=== PATIENT | male | born 1990 | race Caucasian/White ===

== ENCOUNTER 2016-09-04 03:58 | Emergency (ER) | payer OTHER ==
[~2016-09-04] VITALS: Ht 185.4 cm; Wt 95.5 kg
[2016-09-04 04:01] VITALS: BP 136/66; PULSE 84; RESP 22; O2SAT 98
--- NOTE | 2016-09-04 04:23 | ED.REPORT ---
HPI-Extremity Problem Lower Date of Service Sep 04, 2016 ED Provider: Juan Bennett MD A 26 year old male presents to the ED complaining of intermittent right knee pain that began yesterday. He states that his knee is "locked" at 5 degrees and is painful with ROM. Patient was reportedly sleeping when his symptoms began. He has been unable to sleep because of the pain. Patient reportedly injured the knee in 2009 and believes that the injury never fully healed. He has been unable to flex or extend the knee due to pain. Patient took 2 ibuprofen prior to arrival with no relief. Nursing Notes Stated Complaint: RT KNEE PAIN Chief Complaint: Extremity Trauma Nursing Notes Reviewed: Yes Allergies: Coded Allergies: No Known Allergies (Unverified , 09/04/16) General Time Seen by MD: 04:15 Chief Complaint Knee injury right Hx Obtained From: Patient Arrived By: Walk-in Onset Occurred: Yesterday Symptom Duration: Since onset Caused by: Accidental Location: : Knee right Quality: Painful Severity: Current: Moderate Severity: Maximum: Moderate Pertinent Negative: Pt denies other symptoms Exacerbated by: Extension, Flexion Recent Healthcare: No recent doctor visit, No recent hospitalization Past Medical History Past Medical History Previous Knee Injury (2009) Past Surgical History None reported. Smoking History Unknown if Ever Smoker Social History Other Social History: Good social support, Local resident Ambulatory Status Independent Review of Systems Musculoskeletal: Reports: Joint pain (right knee pain), Denies: Extremity swelling, Joint swelling Complete sys rev & neg: except as marked. Physical Exam Initial Vital Signs Vital Signs (First) Date Time Temp Pulse Resp B/P Pulse Ox O2 Delivery O2 Flow Rate FiO2 09/04/16 04:01 36.0 84 22 136/66 98 Room Air Initial VS: Reviewed Head / Eyes: Atraumatic, Normocephalic, PERRL Neck: Supple, Non-tender, Full range of motion Upper Extremities: Vascular intact, Neuro intact, No swelling, No tenderness Skin: Warm, Dry, No cyanosis Neurologic: Alert, Oriented, Nonfocal Psychiatric: Mood/affect normal, Behavior normal, Normal thought content Lower Extremity / Pelvis / MS: Atraumatic, Neurologic intact, Vascular intact Lower Ext Brief Normals: Knee L exam normal Right Knee: Positive: ROM painful (Pt is only comfortable at 5 degrees), Negative: Joint effusion present, Pre-patellar effusion, Tenderness present... Ankle / Foot: Atraumatic, Inspection NL, Neurologic intact, Vascular intact General/Constitutional: Awake, Alert, No acute distress Respiratory / Chest: Atraumatic, Breath sounds NL, Breath sounds = bilat, No respiratory distress Cardiovascular: Heart rate NL, Regular rhythm, Heart sounds NL Interpretation & Diagnostics X-Ray Interpretation Xray Interpretation: IMPRESSION: Negative for fracture X-Ray Ordered: Knee right Interpretation / Wet Read by: Wet read ED physician Procedures Splint Application - Fx Mgt Splint Application- Fx Mgt: Knee Immobilizer placed Time: 07:16 Procedure Performed by: ED physician, Nurse Post-Procedure / Complications: Cap refill normal, Post splint vascular nl, Post splint neuro nl, Condition improved, Tolerated procedure well, Patient stable Splint Post-Application Eval Extremity Condition: Cap refill < 2 sec, Distal sensation intact, Distal motor Intact, No compartment syndrome Re-Eval/Medical Decision Med Decision/Clinical Course 26-year-old male with a history of knee injury presents with knee pain and stiffness. His knee is currently locked at about 5-10 of flexion and very uncomfortable to move out of that range. There is no effusion. I am unable to manipulate the leg to do adequate need testing. Presentation is consistent with the meniscus injury. He was placed in a knee immobilizer and given a Vicodin prepack for pain. He will follow up with Dr. Dumont. Re-Evaluation/Progress : Time of Eval: 07:12 Patient Status: Condition improved Re-Evaluation/Progress Note: KNee immobilizer placed. Pain is still present. Patient is informed of his X-ray results. All of the patient's questions are addressed. He understands and agrees with the intended treatment plan. Counseled Regarding: Diagnosis, Need for follow-up, When/why to return to ED Discharge & Departure Impression: Primary Impression: Acute internal derangement of right knee Disposition: Home Discharge Condition All VS Reviewed: Yes Condition: Improved Patient Instructions: Crutch Instructions (ED), Knee Immobilizer (ED) Additional Instructions: There likely is a meniscus tear that is preventing the knee from functioning properly. Wear the knee immobilizer and use the crutches. acetaminophen and/ or ibuprofen as needed for discomfort. Hydrocodone/acetaminophen 5/325, one or two pills every 4-6 hours as needed for severe pain, #10 dispensed. Follow-up with Dr. Dumont as soon as possible for further evaluation and treatment. Referrals: Preet Garcia Kenneth M MD [facility] Scribe Attestation Portions of this note were transcribed by Bertrand Troy. I, Dr. Bennett personally performed the history, physical exam and medical decision-making; I reviewed and confirmed the accuracy of the information in the transcribed note. Signed by: Jeremy Willard, 09/04/16 0716. Juan Bennett MD Sep 04, 2016 04:23 BERTRAND TROY Sep 04, 2016 04:24
[2016-09-04] MEDS ORDERED: _HYDROcodone/APAP 5-325 mg Tablet PO PRN (07:20)
--- NOTE | 2016-09-04 08:30 | DRSVH ---
PROCEDURE: X-RAY RIGHT KNEE, THREE VIEWS ([id number]) INDICATIONS: knee locked TECHNIQUE: 3 views of the knee were acquired. COMPARISON: [facility] [place], [place], KNEE 3VW (RT), 03/25/2011, 17:52. FINDINGS: Bones: No fractures or dislocations. Density projects over the lateral femoral condyle may be relate d to remote trauma. Please correlate with clinical history Soft tissues: No joint effusion. No suspicious soft tissue calcifications. IMPRESSION: No fracture. No acute osseous lesion. If symptoms and/or clinical suspicion for patholog y persists, further assessment with repeat radiographs or advanced imaging (e.g. CT, MRI or bone scan ) may be helpful for further assessment. Dictated by: Dayanna Giordano MD, PhD on 09/04/2016 at 8:27 Approved by: Dayanna Giordano MD, PhD on 09/04/2016 at 8:28
== END 2016-09-04 07:40 | disposition home or self-care (01) ==
LOC: SED 03:58
DX: M23.91 Unspecified internal derangement of right knee (principal)